=== PATIENT | female | born 1950 | race Native Hawaiian/Other Pacific Islander ===

== ENCOUNTER 2023-03-01 10:41 | Outpatient (CLI) | payer OTHER, MEDICARE ==
[~2023-03-01 10:41] MED LIST: LISI20TA11 PO; PANT40TA PO; SINGULAIR10 MG PO
[2023-03-01 11:09] LABS: PLATELET COUNT 308 K/uL (152-353)
[2023-03-01 11:28] LABS: POTASSIUM 4.8 mmol/L (3.6-5.2)
== END 2023-03-01 18:57 | disposition home or self-care (01) ==
LOC: LABW 10:41
PROVIDERS: ATTEND Nurse Practitioner Family
DX: N18.30 Chronic kidney disease, stage 3 unspecified (principal); E87.5 Hyperkalemia
CPT/HCPCS: 36415; 80053; 85027